=== PATIENT | female | born 2000 | race Caucasian/White ===

== ENCOUNTER 2020-06-13 01:33 | Emergency (ER) | payer BC, SELFPAY ==
[2020-06-13 01:39] VITALS: BP 116/80; BP 96/64; PULSE 82; RESP 14; TEMP 36.8; O2SAT 100; O2SAT 97; BMI 23.0
--- NOTE | 2020-06-13 03:02 | ED.ALCOHOL ---
HPI - Alcohol General Chief Complaint: ETOH/Substance Use Stated Complaint: ETOH Time Seen by Provider: 06/13/20 01:46 Source: patient Mode of arrival: ambulatory History of Present Illness HPI narrative: This is a 20-year-old female who is brought in by EMS when she is found to be vomiting after drinking last night. On questioning the patient she states that she had 3-4 shots and then became nauseous. At the time of speaking with the patient she denies any further feelings of nausea or vomiting. Otherwise, she denies fevers, chills, diarrhea, urinary pain/burning/frequency. Review of Systems Review of Systems: Pertinent positives and negatives as stated in HPI 10 point review of systems is otherwise negative. PMFSH Past Medical History Source: nursing notes reviewed Medical History Anxiety Depression Social History Social History Advance Directives: No Advance Directives Information Provided: No Physical Exam Vital Signs: Vital Signs: Last Vital Signs Temp 98.3 F 06/13/20 01:39 Pulse 82 06/13/20 01:39 Resp 14 06/13/20 01:39 BP 96/64 06/13/20 01:39 Pulse Ox 100 06/13/20 01:39 Body Mass Index 23.0 VITAL SIGNS: Reviewed. GENERAL: Well developed, well nourished, in no acute distress. HEAD: Normocephalic/atraumatic, EYES: PERRLA, EOMI intact without pain, no nystagmus NOSE: Nares patent bilateral OROPHARYNX: no oral lesions noted, posterior pharynx clear NECK: Supple, no adenopathy LUNGS: Normal breath sounds. SpO2<100> CARDIOVASCULAR: Regular rate and rhythm without noted murmurs ABDOMEN: Soft, non-tender, non-distended with bowel sounds. NEUROLOGIC: Alert and oriented x 4. Patient observed to have a steady gait, articulate speech Course Course Course Narrative: This is a 20-year-old female with history and clinical presentation consistent with nausea and vomiting secondary to alcohol consumption, clinically sober and can be discharged however patient unable to get a ride and does not currently have her car. She can be discharged at 6:00 a.m. by calling [facility], or calling taxi. Discharge Plan Discharge Clinical Impression: Alcoholic intoxication Qualifiers: Complication of substance-induced condition: uncomplicated Qualified Code(s): F10.920 - Alcohol use, unspecified with intoxication, uncomplicated Patient Disposition: Home, Self-Care Instructions: Alcohol Intoxication (ED) Additional Instructions: Please do not hesitate to return to the emergency department should you experience any acute worsening of your symptoms. Referrals: Physician,Unknown [Primary Care Provider] - 2 days
== END 2020-06-13 06:34 | disposition home or self-care (01) ==
PROVIDERS: Emergency Provider Student in an Organized Health Care Education/Training Program
DX: F10.920 Alcohol use, unspecified with intoxication, uncomplicated (principal); Y90.9 Presence of alcohol in blood, level not specified; R11.2 Nausea with vomiting, unspecified
CPT/HCPCS: 99283